=== PATIENT | male | born 1975 | race Caucasian/White ===

== ENCOUNTER 2016-09-04 20:37 | Emergency (ER) | payer BC ==
[2016-09-04 21:09] VITALS: BP 143/70
[2016-09-04] MEDS ORDERED: DOXYcycline CAP(*) 100 MG PO ONE (21:47)
--- NOTE | 2016-09-04 21:50 | UC ---
Throat Pain/Nasal Carmine HPI - HPI Summary HPI Summary: URI sx starting about 8-9 days ago, fever for first 3 days with nasal congestion and cough developing around day 4. Was feeling a bit better, but worse for the last 2 days with lots of L ear congestion and foul mucus. Denies new fever or difficulty breathing. - History of Current Complaint Chief Complaint: UCEar Stated Complaint: PLUGGED EAR SINUS ISSUE Time Seen by Provider: 09/04/16 21:41 Hx Obtained From: Patient Onset/Duration: Gradual Onset, Lasting Days Severity: Moderate Cough: Productive Associated Signs & Symptoms: Positive: Sinus Discomfort, Nasal Discharge. Negative: Fever, Vomiting, Rash - Allergies/Home Medications Allergies/Adverse Reactions: Allergies Allergy/AdvReac Type Severity Reaction Status Date / Time No Known Allergies Allergy Verified 09/04/16 21:10 PMH/Surg Hx/FS Hx/Imm Hx Endocrine History Of: Denies: Diabetes, Thyroid Disease Cardiovascular History Of: Denies: Cardiac Disorders, Hypertension Respiratory History Of: Denies: COPD, Asthma GI/ History Of: Denies: Ulcer Neurological History Of: Reports: Seizures - LAST ONE 7 YRS AGO - Surgical History Surgical History: Yes Surgery Procedure, Year, and Place: left partial temporal lobe resection 2008 [email or web address] - Family History Known Family History: Negative: Blood Disorder - Social History Occupation: Employed Full-time Lives: With Family Alcohol Use: Rare Substance Use Type: Marijuana Substance Use Comment - Amount & Last Used: 2-3/week Smoking Status (MU): Never Smoked Tobacco - Immunization History Most Recent Influenza Vaccination: 2013 Review of Systems Constitutional: Fever Skin: Negative Eyes: Negative ENT: Sore Throat, Ear Ache, Nasal Discharge Respiratory: Negative Cardiovascular: Negative Gastrointestinal: Negative Genitourinary: Negative Motor: Negative Neurovascular: Negative Musculoskeletal: Negative Neurological: Negative Psychological: Negative All Other Systems Reviewed And Are Negative: Yes Physical Exam Triage Information Reviewed: Yes Appearance: Well-Appearing, No Pain Distress, Well-Nourished Vital Signs: Initial Vital Signs Temp 98.3 F 09/04/16 21:06 Pulse 70 09/04/16 21:06 Resp 16 09/04/16 21:06 BP 143/70 09/04/16 21:06 Pulse Ox 97 09/04/16 21:06 Vital Signs Reviewed: Yes Eye Exam: Normal Eyes: Positive: Conjunctiva Clear ENT: Positive: Pharynx normal, Nasal congestion, TMs normal. Negative: Nasal drainage, Tonsillar swelling, Tonsillar exudate Dental Exam: Normal Neck exam: Normal Neck: Positive: Supple, Nontender, No Lymphadenopathy Respiratory Exam: Normal Respiratory: Positive: Chest non-tender, Lungs clear, Normal breath sounds, No respiratory distress, No accessory muscle use Cardiovascular Exam: Normal Cardiovascular: Positive: RRR, No Murmur Musculoskeletal Exam: Normal Neurological Exam: Normal Psychological Exam: Normal Skin Exam: Normal Throat Pain/Nasal Course/Dx - Differential Dx/Diagnosis Provider Diagnoses: URI. acute sinusitis Discharge - Discharge Plan Condition: Stable Disposition: HOME Prescriptions: DOXYcycline CAP(*) [DOXYcycline 100MG CAP(*)] 100 mg PO BID #14 cap Patient Education Materials: Sinusitis (ED), Serous Otitis Media (ED) Referrals: Bob Preston MD [Primary Care Provider] - Additional Instructions: Call or return if you develop increasing fever, shortness of breath, chest pain , bloody sputum, or otherwise worsen. If you have not improved at all after several days, contact your primary care physician or return here.
== END 2016-09-04 21:49 | disposition home or self-care (01) ==
LOC: UCEAST 20:37
DX: J06.9 Acute upper respiratory infection, unspecified (principal); J01.90 Acute sinusitis, unspecified
CPT/HCPCS: 99212; A9270-GY; G0463